=== PATIENT | female | born 1985 | race Hispanic/Latino ===

== ENCOUNTER 2017-09-17 15:35 | Emergency (ER) | payer BC ==
[2017-09-17 15:47] VITALS: TEMP 98.5; O2SAT 99
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
[2017-09-17 17:48] VITALS: BP 129/78; PULSE 85; RESP 18
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
== END 2017-09-17 17:47 | disposition home or self-care (01) ==
LOC: ED 15:35 → MERGE 15:35 → ED 17:47
DX: S59.911D Unspecified injury of right forearm, subsequent encounter (principal); V18.4XXD Pedal cycle driver injured in noncollision transport accident in traffic accident, subsequent encounter